=== PATIENT | female | born 1945 | race Caucasian/White ===

== ENCOUNTER 2019-09-13 10:53 | Emergency (ER) | payer MEDICARE ==
--- OUTSIDE RECORDS SUMMARY | 2019-09-13 11:22 | XMS REPORT | Continuity of Care Document ---
:1945 External Reference #:[id number] Author Name Esther Molina PA (transmitted by agent of provider Yojana Dalton) Address [address] [facility], [address] [place] [address] Care Team Providers Name Role Phone [facility] Physical Care Team Information Electric Wheelchair Repairer Therapy - Physical Therapist [facility] - Care Team Information Electric Wheelchair Repairer [phone] Orthopaedic Surgery HCP given Care Team Information Electric Wheelchair Repairer Unavailable Problems Active Problems Provider Date Essential hypertension Esther Molina PA Onset: 07/25/2016 Benign paroxysmal positional vertigo Esther Molina PA Onset: 07/25/2016 Disorder of bone Esther Molina PA Onset: 08/07/2016 Carpal tunnel syndrome of left wrist Esther Molina PA Onset: 03/25/2017 Hyperlipidemia Etsher Molina PA Onset: 07/16/2017 Impaired renal function disorder Esther Molina PA Onset: 07/16/2017 Disorder of bone Esther Molina PA Onset: 07/16/2018 Malignant tumor of urinary bladder Esther Molina PA Onset: 10/28/2018 Diverticular disease of colon Esther Molina PA Onset: 10/28/2018 Basal cell carcinoma of face Esther Molina PA Onset: 03/16/2019 Social History Type Date Description Comments Sex Unknown Tobacco Use Start: Unknown Denies Cigarette Use Smoking Status Reviewed: 07/16/18 Denies Cigarette Use ETOH Use Denies alcohol use Tobacco Use Start: Unknown Non Smoker Recreational Drug Use Denies Drug Use Exercise Type/Frequency Exercises regularly Sun Exposure Uses sunscreen Seat Belt/Car Seat Seat Belt Use - Yes Guns in Home No Smoke Alarms Yes smoke alarm Allergies, Adverse Reactions, Alerts Description No Known Drug Allergies Medications Active Medications SIG Qnty Indications Ordering Date Provider Neomycin/Polymyxin/H Instill 4 drops 10ml H60.91 Adal Montaño, 2018 ydrocortisone (Otic) into affected ear 3 D.O. times per day for 1% Solution 10 days for outer ear infection Oscal 2 daily Unknown 07/15/2018 600mg Lisinopril take 1 & 1/2 (one & 135tabs I10 Sabra Adal, 06/01/2018 10mg one-half) tablets D.O. Tablets by mouth once daily for high blood pressure Blood Pressure Cuff use as directed 1units I10 Silcoff, 04/21/2018 Suleiman eMdel Misc Ventolin HFA 2 puffs q4-6 hours 18gm J20.9 Silcoff, 04/07/2018 as needed Suleiman Medel 108(90Base) mcg/Act Aerosol Atorvastatin Calcium take 1/2 tablet by 45tabs E78.5 Silcodaren, 11/05/2017 mouth every evening Suleiman Medel 20mg Tablets for cholesterol Fish Oil 1 daily Unknown 03/24/2017 1000mg Capsules Vitamin D3 Super Unknown Strength 2000Unit Capsules History Medications Ciprodex instill 4 drops 7.500ml H60.91 Sabra Adal, 03/18/2019 - 0.3-0.1% into ears 2 D.O. 03/19/2019 Suspension times per day for 7 days Neomycin/Polymyxin/ 5 drops right 10ml H60.91 Gianfranco Helm, 03/16/2019 - Hydrocortisone ear 3x/day for 7 M.D. 03/18/2019 (Otic) days 3.5-71108-3 Suspension Immunizations CPT Code Status Date Vaccine Lot # [id number] Given 03/16/2019 Influenza Vaccine, Inactivated, Subunit, [id number] Adjuvanted, For Intrmusc 62523 Given 06/02/2018 Influenza Vaccine, Inactivated, Subunit, [id number] Adjuvanted, For Intrmusc 80121 Given 06/04/2017 Pneumococcal Immunization [id number] 68375 Given 03/25/2017 Influenza Vaccine Split Virus Preservative Free Im [id number] Use (hi-dose) 05528 Given 08/07/2016 Adacel or Boostrix, TDaP [id number] 34237 Given 04/14/2016 Influenza Virus Vaccine, Quadrivalent, Split, Preservative Free 99561 Given 04/14/2016 Prevnar 13 Vital Signs Date Vital Result Comment 09/08/2019 8:25am BP Systolic 124 mmHg BP Diastolic 60 mmHg Height 58.25 inches 4'10.25" Weight 124.00 lb BMI (Body Mass Index) 25.7 kg/m2 03/16/2019 9:41am BP Systolic 118 mmHg BP Diastolic 70 mmHg Height 58.25 inches 4'10.25" Weight 121.00 lb BMI (Body Mass Index) 25.1 kg/m2 Results Test Acquired Date Facility Test Result H/L Range Note Comp Metabolic 08/30/2019 [facility] Sodium 143 mmol/L Normal 135- 145 Panel [phone] Potassium 4.3 mmol/L Normal 3.5-5.0 Chloride 110 mmol/L Normal 101-111 Co2 Carbon Dioxide 28 mmol/L Normal 22-32 Anion Gap 5 mmol/L Normal 2-11 Glucose 84 mg/dL Normal 70-100 Blood Urea Nitrogen 12 mg/dL Normal 6-24 Creatinine 0.87 mg/dL Normal 0.51-0.95 BUN/Creatinine Ratio 13.8 Normal 8-20 Calcium 8.6 mg/dL Normal 8.6-10.3 Total Protein 5.6 g/dL Low 6.4-8.9 Albumin 3.7 g/dL Normal 3.2-5.2 Globulin 1.9 g/dL Low 2-4 Albumin/Globulin Ratio 1.9 Normal 1-3 Total Bilirubin 0.20 mg/dL Normal 0.2-1.0 Alkaline Phosphatase 66 U/L Normal 34-104 Alt 39 U/L Normal 7-52 Ast 38 U/L Normal 13-39 Egfr Non- 63.8 >60 Egfr 77.2 >60 1 Lipid Profile (Trig/Chol/HDL) 08/30/2019 [facility] Triglycerides 63 mg /dL 2 [phone] Cholesterol 124 mg/dL 3 HDL Cholesterol 49.0 mg/dL 4 LDL Cholesterol 62 mg/dL 5 Urinalysis Profile 08/30/2019 [facility] Urine Color Yellow [phone] Urine Appearance Clear Urine Specific [place] 1.013 Normal 1.010-1.030 Urine pH 5.0 Normal 5-9 Urine Urobilinogen Negative Negative Urine Ketones Negative Negative Urine Protein Negative Negative Urine Leukocytes Negative Negative Urine Blood Negative Negative Urine Nitrite Negative Negative Urine Bilirubin Negative Negative Urine Glucose Negative Negative 1 Because ethnic data is not always readily available, this report includes an eGFR for both -Americans and non- Americans. The National Kidney Disease Education Program (NKDEP) does not endorse the use of the MDRD equation for patients that are not between the ages of 18 and 70, are , have extremes of body size, muscle mass, or nutritional status, or are non- or non-. According to the National Kidney Foundation, irrespective of diagnosis, the stage of the disease is based on the level of kidney function: Stage Description GFR(mL/min/1.73 m(2)) 1 Kidney damage with normal or decreased GFR 90 2 Kidney damage with mild decrease in GFR 60-89 3 Moderate decrease in GFR 30-59 4 Severe decrease in GFR 15-29 5 Kidney failure <15 (or dialysis) 2 Desirable: <150 Borderline High: 150-199 High: 200-499 Very High: >500 3 Desirable: <200 Borderline High: 200-239 High: >239 4 Low: <40 Desirable: 40-60 High: >60 5 Desirable: <100 Near Optimal: 100-129 Borderline High: 130-159 High: 160-189 Very High: >189 Procedures Date Code Description Status 08/11/2019 51808129 Mammogram Completed 10/26/2018 44230819 Colonoscopy Completed Medical Devices Description No Information Available Encounters Type Date Location Provider Dx Diagnosis Office Visit 09/08/2019 Main Office Esther Molina PA Z00.00 Encntr for general 8:00a adult medical exam w/o abnormal findings I10 Essential (primary) hypertension C67.9 Malignant neoplasm of bladder, unspecified Z68.25 Body mass index (BMI) 25.0-25.9, adult Office Visit 03/16/2019 9:45a Main Office Esther Molina, H60.91 Unspecified otitis PA externa, right ear C67.9 Malignant neoplasm of bladder, unspecified I10 Essential (primary) hypertension Z23 Encounter for immunization Z68.25 Body mass index (BMI) 25.0-25.9, adult Assessments Date Code Description Provider 09/08/2019 Z00.00 Encounter for general adult medical examination Esther Molina PA without abno 09/08/2019 I10 Essential (primary) hypertension Esther Molina PA 09/08/2019 C67.9 Malignant neoplasm of bladder, unspecified Esther Molina PA 09/08/2019 Z68.25 Body mass index (BMI) 25.0-25.9, adult Esther Molina PA 03/16/2019 H60.91 Unspecified otitis externa, right ear Esther Molina PA 03/16/2019 C67.9 Malignant neoplasm of bladder, unspecified Esther Molina PA 03/16/2019 I10 Essential (primary) hypertension Esther Molina PA 03/16/2019 Z23 Encounter for immunization Esther Molina PA 03/16/2019 Z68.25 Body mass index (BMI) 25.0-25.9, adult Esther Molina PA Plan of Treatment 09/08/2019 - Esther Molina, PAZ00.00 Encounter for general adult medical examination without abnoI10 Essential (primary) hypertensionFollow up:f/u 6 yljyidK45.9 Malignant neoplasm of bladder, xflqxnftfepR71.25 Body mass index ( BMI) 25.0-25.9, adult Functional Status Description No Information Available Mental Status Description No Information Available Referrals Description No Information Available
--- OUTSIDE RECORDS SUMMARY | 2019-09-13 11:22 | XMS REPORT | Continuity of Care Document ---
:1945 External Reference #:[id number] Author Name Esther Molina PA (transmitted by agent of provider Kierra Anguiano) Address [address] [facility], [address] [place] [address] Care Team Providers Name Role Phone [facility] Physical Care Team Information Rubberizing Mechanic [phone] Therapy - Physical Therapist [facility] - Care Team Information Rubberizing Mechanic [phone] Orthopaedic Surgery HCP given Care Team Information Rubberizing Mechanic Unavailable Problems Active Problems Provider Date Essential hypertension Esther Molina PA Onset: 07/25/2016 Benign paroxysmal positional vertigo Esther Molina PA Onset: 07/25/2016 Disorder of bone Esther Molina PA Onset: 08/07/2016 Carpal tunnel syndrome of left wrist Esther Molina PA Onset: 03/25/2017 Hyperlipidemia Esther Molina PA Onset: 07/16/2017 Impaired renal function [...] Unknown Denies Cigarette Use Smoking Status Reviewed: 09/08/19 Denies Cigarette Use ETOH Use Denies alcohol [...] as directed 1units I10 Silcoff, 04/21/2018 Suleiman Medel Misc Ventolin HFA 2 puffs q4-6 hours [...] 3x/day for 7 M.D. 03/18/2019 (Otic) days 3.5-36733-1 Suspension Immunizations CPT Code Status Date Vaccine Lot # [id number] Given 03/16/2019 Influenza Vaccine, Inactivated, Subunit, [id number] Adjuvanted, For Intrmusc 92425 Given 06/02/2018 Influenza Vaccine, Inactivated, Subunit, [id number] Adjuvanted, For Intrmusc 17308 Given 06/04/2017 Pneumococcal Immunization [id number] 34271 Given 03/25/2017 Influenza Vaccine Split Virus Preservative Free Im [id number] Use (hi-dose) 39680 Given 08/07/2016 Adacel or Boostrix, TDaP [id number] 01689 Given 04/14/2016 Influenza Virus Vaccine, Quadrivalent, Split, Preservative Free 35966 Given 04/14/2016 Prevnar 13 Vital Signs Date [...] Result H/L Range Note Comp Metabolic 08/30/2019 [facility] Sodium 143 mmol/L Normal 135- 145 Panel [phone] Potassium 4.3 mmol/L Normal 3.5-5.0 Chloride 110 [...] 77.2 >60 1 Lipid Profile (Trig/Chol/HDL) 08/30/2019 [facility] Triglycerides 63 mg /dL 2 [phone] Cholesterol 124 mg/dL 3 HDL Cholesterol 49.0 mg/dL 4 LDL Cholesterol 62 mg/dL 5 Urinalysis Profile 08/30/2019 [facility] Urine Color Yellow [phone] Urine Appearance Clear Urine Specific [place] 1.013 Normal 1.010-1.030 Urine pH 5.0 Normal [...] >189 Procedures Date Code Description Status 08/11/2019 [id number] Mammogram Completed 10/26/2018 [id number] Colonoscopy Completed Medical Devices Description No Information Available Encounters Type Date Location Provider Dx Diagnosis Office Visit 03/16/2019 Main Office Esther Molina PA H60.91 Unspecified otitis 9:45a externa, right ear C67.9 Malignant neoplasm of [...] adult Esther Molina PA Plan of Treatment Future Appointment(s):03/15/2020 8:40 am - Esther Molina PA at Main [facility]6/2018 - Esther Molina PAC67.9 Malignant neoplasm of bladder, unspecifiedComments:Low grade papillary urothelial carcinoma, TURBT done . Pt following with urology - no furthertreatment needed, just cystoscopy Q3 months for monitoring.K57.90 Diverticulosis of intestine, part unspecified, without perfoComments:Doing well. Monitor.I10 Essential (primary) hypertensionComments:Good control on current meds, continue same.Follow up:f/u 6 months Functional Status Description No Information Available Mental Status Description No Information Available Referrals Description No Information Available
[2019-09-13 12:00] VITALS: BP 121/64
[2019-09-13] MEDS ORDERED: HYDROcodone/ACETAMIN 5-325 MG* 1 TAB PO ONE (12:07)
--- NOTE | 2019-09-13 12:07 | UC ---
Abdominal Pain Female HPI - HPI Summary HPI Summary: 73 year old female with h/o diverticulitis in past, ~ 1 year ago, presents with LLQ abdominal pain, chills/ ? fever last night, decreased appetite, blood in her stool x this AM. Call physician who told her to come to ER or Urgent care. - History of Current Complaint Chief Complaint: UCAbdominalPain Stated Complaint: STOMACH PAIN/DIRRHEA Time Seen by Provider: 09/13/19 12:00 Hx Obtained From: Patient Pain Intensity: 8 Allergies/Adverse Reactions: Allergies Allergy/AdvReac Type Severity Reaction Status Date / Time No Known Allergies Allergy Verified 09/13/19 12:01 Home Medications: Home Medications Atorvastatin* [Lipitor 10 MG*] 10 mg PO DAILY 09/13/19 [History Confirmed ] Calcium Carbonate [Calcium] 600 mg PO DAILY 09/13/19 [History Confirmed 09/13/19 ] Lisinopril TAB* [Prinivil TAB*] 10 mg PO DAILY 09/13/19 [History Confirmed 09/12] [place]-3 Fatty Acids/Fish Oil [Fish Oil Concentrate] 1 cap PO DAILY 09/13/19 [ History Confirmed 09/13/19] PMH/Surg Hx/FS Hx/Imm Hx - Surgical History Surgical History: Yes Surgery Procedure, Year, and Place: X2, CARPAL TUNNEL SURGERY, LESION REMOVAL FROM BLADDER - Social History Alcohol Use: None Substance Use Type: None Smoking Status (MU): Never Smoked Tobacco Review of Systems All Other Systems Reviewed And Are Negative: Yes Constitutional: Positive: Fever, Chills, Fatigue Gastrointestinal: Positive: Abdominal Pain, Diarrhea, Nausea, Other - blood in stool Psychological: Positive: Negative Is Patient Immunocompromised?: No Physical Exam Triage Information Reviewed: Yes Appearance: Well-Nourished, Ill-Appearing - mild, Pain Distress - mild Vital Signs: Initial Vital Signs Temp 98.0 F 09/13/19 11:55 Pulse 95 09/13/19 11:55 Resp 16 09/13/19 11:55 BP 121/64 09/13/19 11:55 Pulse Ox 98 09/13/19 11:55 Vital Signs Reviewed: Yes Eyes: Positive: Conjunctiva Clear Abdomen Description: Positive: Distended, Guarding, Other: - TTP over LLQm, diffusely distended.. Negative: No Organomegaly, CVA Tenderness (R), CVA Tenderness (L), Hepatomegaly Musculoskeletal: Positive: Strength Intact, ROM Intact, No Edema Neurological Exam: Normal Psychological Exam: Normal Skin Exam: Normal Abd Pain Female Course/Dx - Course Course Of Treatment: Patient sent to [place] for further evaluation and treatment, called over to hospital and gave report - Differential Dx/Diagnosis Differential Diagnosis: Urinary Tract Infection Provider Diagnosis: Abdominal pain Discharge ED - Sign-Out/Discharge Documenting (check all that apply): Patient Departure All imaging exams completed and their final reports reviewed: No Studies - Discharge Plan Condition: Guarded Disposition: HOME-RECOMMEND TO ED Referrals: Esther Molina PA [Primary Care Provider] - Additional Instructions: Please go to ER with your symtpoms, nothing to eat on the way there. - Billing Disposition and Condition Condition: GUARDED Disposition: Home-Recommend to ED
== END 2019-09-13 12:23 | disposition home health service (06) ==
LOC: UCCORT 10:53
DX: R10.32 Left lower quadrant pain (principal); R19.7 Diarrhea, unspecified; R11.0 Nausea; K92.1 Melena
CPT/HCPCS: 99212; G0463